=== PATIENT | male | born 1980 | race Caucasian/White ===

== ENCOUNTER 2022-10-30 20:39 | Emergency (ER) | payer SELFPAY ==
--- NOTE | ~2022-10-30 | CT_ITS ---
CT scan of the Neck Technique: 2.5 mm axial scans were obtained through the neck after intravenous administration of 75 c c Omnipaque 350. Coronal and sagittal reconstructions of the neck were obtained. Dose reduction techn ique was used on this scan by utilizing automated exposure control and iterative reconstruction techn ique. The dose-length product (DLP) was 748.32 mGy-cm. Clinical History: Left jaw swelling, abscess Findings: There is no evidence of any significant cervical lymphadenopathy. Several small, nonenlarged jugulo- digastric and posterior cervical lymph nodes are noted bilaterally. Parapharyngeal spaces appear norm al bilaterally. The parotid and submandibular glands appear normal. There is extensive subcutaneous soft tissue edema and swelling over the left mandibular region, somew hat extending into the submental region. No definite abscess identified. The pharyngeal mucosal spaces appear normal. No soft tissue masses are seen in the neck. Mild bilater al maxillary sinus disease present. Remaining paranasal sinuses and mastoid air cells are clear. The thyroid gland appears normal. Images of the lung apices reveal no abnormalities. Impression: Extensive subcutaneous soft tissue edema and swelling over the left mandibular region, suggestive of cellulitis. No abscess evident. Mild bilateral maxillary sinus disease. Reviewed, dictated and finalized at [facility]. Impression: Extensive subcutaneous soft tissue edema and swelling over the left mandibular region, suggestive of cellulitis. No abscess evident. Mild bilateral maxillary sinus disease.
[2022-10-30 20:47] VITALS: BP 168/91; PULSE 95; RESP 16; TEMP 36.9; O2SAT 100
--- NOTE | 2022-10-30 21:29 | ED.SKABFB ---
HPI - Skin/Abscess/Foreign Bdy General Chief complaint: Skin/Abscess/Foreign Body Stated complaint: L lower jaw swelling Time Seen by Provider: 10/30/22 21:11 Source: patient Mode of arrival: ambulatory Limitations: no limitations History of Present Illness HPI narrative: 42 year old male presents today with concerns to swelling of the left jaw that started today. States he has a hisory of mrsa. Noted a area to his left thigh that was red and painful yesterday but better today. left jaw started with swelling and redness today. Pain noted. Dental pain noted after swelling started. Patient did endorse cocaine usage, marijuana, but denies injecting recreational drugs. Denies fevers but states he hasn't felt well for a couple days but again did endorse large amount of cocaine usage this weekend. Onset (ago): hour(s) Related Data Allergies Allergy/AdvReac Type Severity Reaction Status Date / Time Sulfa (Sulfonamide Allergy Unknown Verified 10/30/22 20:50 Antibiotics) Review of Systems Review of Systems: All systems reviewed & are unremarkable except as noted in HPI and below ENT: Reports as per HPI Cardiovascular: Cardiovascular: Reports as per HPI Respiratory: Respiratory: Reports as per HPI Gastrointestinal: Gastrointestinal: Reports as per HPI Musculoskeletal: Musculoskeletal: Reports as per HPI Integumentary/Breasts: Skin/Breast: Reports as per HPI Neurologic: Reports as per HPI Psychiatric: Psychiatric: Reports as per HPI [facility] Past Medical History Medical History MRSA (methicillin resistant Staphylococcus aureus) Social History Social History (Updated 10/31/22 @ 01:46 by Cathy Wallace APRN) Smoking status: Current every day smoker Substance use: current Substance use type: marijuana and crack/cocaine Exam Const: General: cooperative, healthy appearing, comfortable, no acute distress and well developed Orientation/consciousness: patient oriented x3 HENMT: Mouth: Yes Normal oral and palatal mucosa present, No drooling, No muffled voice, No trismus and Yes other (dental decay noted, no abscess, no erythema) Other: swellinng to left jaw with some ertythema. difficult to fully evaluated due to johnston. Eyes: General: appearance normal, both eyes and all related structures Resp: Effort & Inspection: normal respiratory effort and able to speak in complete sentences Auscultation: clear to auscultation bilaterally Cardio: Rate: regular rate Rhythm: regular rhythm Heart sounds: S1 normal heart sound present and S2 normal heart sound present Skin: Other: as noted above and multiple scabs noted to multiple areas of the body. elke rash area noted to belt line to left abdomen. puritic per patient. Neuro: General: patient oriented x3 Course Course Emergency Course: patient with improvement in pain after Toradol. doing well. Discussed ct results. Plan discharge home on abx. return precautions reviewed. Patient in agreement with plan of care Vital Signs Vital signs: Vital Signs Temperature 98.5 F 10/30/22 20:47 Pulse Rate 95 10/30/22 20:47 Respiratory Rate 16 10/30/22 20:47 Blood Pressure 168/91 H 10/30/22 20:47 Pulse Oximetry 100 10/30/22 20:47 Oxygen Delivery Room Air 10/30/22 20:47 Temperature 98 F 10/31/22 00:53 Pulse Rate 88 10/31/22 00:53 Respiratory Rate 15 10/31/22 00:53 Blood Pressure 151/94 H 10/31/22 00:53 Pulse Oximetry 97 10/31/22 00:53 Oxygen Delivery Room Air 10/30/22 20:47 MDM - Skin/Abscess/Foreign Bdy MDM Narrative Medical decision making narrative: 42-year-old male HPI as noted. Differentials including abscess, dental abscess, cellulitis. No trismus or Ludewig's angina noted. No fever but slight tachycardia with a heart rate of 95 noted patient with history of MRSA. CBC shows elevated white count at 15.9 but no other concerning findings. C
[2022-10-30 21:59] LABS: Basophils Absolute Auto 0.1 K/mm3 (0.0-0.1); Basophils Percent Auto 0.4 % (0.2-1.2); Eosinophils Absolute Auto 0.3 K/mm3 (0-0.3); Eosinophils Percent Auto 1.7 % (0-4.4); Hematocrit 43.4 % (42.0-52.0); Hemoglobin 14.9 g/dL (14.0-18.0); Immature Granulocyte Absolute 0.05 K/mm3 (0.00-0.031); Immature Granulocyte Percent A 0.3 % (0-0.5); Lymphocytes Absolute Auto 2.13 K/mm3 (0.9-3.2); Lymphocytes Percent Auto 13.4 % (18.3-44.2); Mean Corpuscular HGB Conc 34.3 g/dl (32-36); Mean Corpuscular Hemoglobin 31.9 pg (26-34); Mean Corpuscular Volume 92.9 fl (80-100); Mean Platelet Volume 8.8 fl (7.4-10.4); Monocytes Absolute Auto 1.9 K/mm3 (0.1-0.6); Monocytes Percent Auto 11.7 % (2.6-8.5); Neutrophils Absolute Auto 11.5 K/mm3 (1.3-6.7); Neutrophils Percent Auto 72.5 % (45.5-73.1); Platelet Count Result 359 k/mm3 (150-375); Red Blood Count 4.67 M/mm3 (4.6-6.20); Red Cell Distribution Width 12.7 % (11.5-14.5); White Blood Count 15.9 K/mm3 (4.5-10.0)
[2022-10-30 22:09] LABS: Alanine Aminotransferase 23 U/L (6-50); Albumin Level 4.7 g/dL (3.5-5.1); Alkaline Phosphatase 75 U/L (38-126); Anion Gap 11 mmol/L (8-16); Aspartate Amino Transferase 30 U/L (17-59); Bilirubin,Total 0.6 mg/dL (0.2-1.3); Blood Urea Nitrogen 16 mg/dL (9-20); Calcium 9.5 mg/dL (8.4-10.2); Carbon Dioxide 29 mmol/L (22-30); Chloride 99 mmol/L (98-107); Estimated CRCL calculation 112 ml/min; Estimated Glomerular Filt Rate > 60; Glucose 113 mg/dL (65-110); Potassium 3.9 mmol/L (3.4-5.0); Sodium 139 mmol/L (137-145)
[2022-10-30 22:36] VITALS: BP 159/91; PULSE 77; RESP 15; O2SAT 100
[2022-10-30] MEDS: CLINDAMYCIN 900 MG/D5W 50 ML 900 MG/50 ML PIGGYBACK 50 MG IVPB (23:22)
[2022-10-30] MEDS: KETOROLAC 30 MG/ML VIAL (*BKC) IV PUSH (23:29)
[2022-10-31 00:53] VITALS: BP 151/94; PULSE 88; RESP 15; TEMP 36.6; O2SAT 97
== END 2022-10-31 00:54 | disposition home or self-care (01) ==
PROVIDERS: Emergency Provider Nurse Practitioner Family
DX: L03.211 Cellulitis of face (principal); F17.200 Nicotine dependence, unspecified, uncomplicated
CPT/HCPCS: 36415; 70491; 80053; 85025; 87040; 96365; 96375; 99284; J1885; Q9967

== ENCOUNTER 2023-02-03 14:56 | Emergency (ER) | payer SELFPAY ==
--- NOTE | 2023-02-03 14:59 | ED.SKABFB ---
HPI - Skin/Abscess/Foreign Bdy General Chief complaint: Skin/Abscess/Foreign Body Stated complaint: Staff Infection Source: patient and RN notes reviewed Mode of arrival: ambulatory Limitations: no limitations History of Present Illness HPI narrative: Patient is a 42-year-old male who presents to the [facility] with complaints wound to his right cheek and left forearm. Patient states that he scraped his right cheek and left forearm approximately 2 days ago. Patient states that he noted some swelling and redness to the areas. He reports a mild burning to both his right cheek and left forearm. He presents with notable abscesses to each area. There was a centered scab with surrounding erythema and induration. He denies recent fevers. Patient reports history of MRSA. Related Data Allergies Allergy/AdvReac Type Severity Reaction Status Date / Time Sulfa (Sulfonamide Allergy Unknown Verified 02/03/23 15:01 Antibiotics) Review of Systems Review of Systems: CONSTITUTIONAL: Denies fever, chills, or sweats. EYES: Denies visual changes, redness, or discharge. ENT: Denies otalgia and sore throat CARDIOVASCULAR: Denies chest pain, palpitations, or edema. RESPIRATORY: Denies cough or dyspnea. GASTROINTESTINAL: Denies abdominal pain, nausea, vomiting, or diarrhea. GENITOURINARY: Denies dysuria or hematuria. SKIN: Denies rash or itching. Reports wound to right cheek and left forearm with swelling and redness. MUSCULOSKELETAL: Denies back pain, joint pain, or myalgia. NEUROLOGIC: Denies headache, numbness, or weakness. Pertinent positives per HPI. [facility] Past Medical History Medical History MRSA (methicillin resistant Staphylococcus aureus) Social History Social History Smoking status: Current every day smoker Substance use: current Substance use type: marijuana and crack/cocaine Comments At the time of my signature, I reviewed and agree with the nursing past medical, surgical, social, and family history. There is no relevant family history pertinent to the patient complaint. Exam Narrative: GENERAL: This is a well-nourished, well-developed patient, in no apparent distress. HEAD: normocephalic, atraumatic. EYES: PERRL. Sclera clear/white. Vision is grossly intact. EARS: External ears normal, auditory canals clear and without drainage, TMs normal without perforation. Hearing grossly intact. NOSE: External nose normal with no obvious nasal discharge, nares without redness, no rhinorrhea. THROAT: Mucous membranes moist, posterior pharynx clear. NECK: Neck supple, non-tender without lymphadenopathy, masses or thyromegaly. CARDIOVASCULAR: Regular rate and rhythm without murmurs, gallops, or rubs. RESPIRATORY: Clear to auscultation. Breath sounds equal bilaterally. No wheezes, rales, or rhonchi. GASTROINTESTINAL: Abdomen soft, non-tender, nondistended. Bowel sounds are active. No hepato-splenomegaly, or palpable masses. No guarding. SKIN: warm, intact with no suspicious rash, good texture and turgor. Right cheek abscess with centered scab with surrounding induration and erythema. No active drainage. Left forearm abscess with centered scab with surrounding induration and erythema. NEURO: awake, alert, and oriented to person, place and time. There were no obvious focal neurologic abnormalities. Course Course Level of Care: Express Care Visit Vital Signs Vital signs: Vital Signs Temperature 97.8 F 02/03/23 15:03 Pulse Rate 73 02/03/23 15:03 Respiratory Rate 16 02/03/23 15:03 Blood Pressure 117/73 02/03/23 15:03 Pulse Oximetry 100 02/03/23 15:03 Temperature 97.8 F 02/03/23 15:03 Pulse Rate 73 02/03/23 15:03 Respiratory Rate 16 02/03/23 15:03 Blood Pressure 117/73 02/03/23 15:03 Pulse Oximetry 100 02/03/23 15:03 Reviewed MDM - Skin/Abscess/Foreign Bdy MDM N
[2023-02-03 15:03] VITALS: BP 117/73; PULSE 73; RESP 16; TEMP 36.6; O2SAT 100
== END 2023-02-03 15:16 | disposition home or self-care (01) ==
LOC: EXPGOSH 14:58
PROVIDERS: Emergency Provider Nurse Practitioner
DX: L02.01 Cutaneous abscess of face (principal); L02.414 Cutaneous abscess of left upper limb; Z86.14 Personal history of Methicillin resistant Staphylococcus aureus infection; F17.200 Nicotine dependence, unspecified, uncomplicated; F12.90 Cannabis use, unspecified, uncomplicated; F14.90 Cocaine use, unspecified, uncomplicated
CPT/HCPCS: 99213; G0463

== ENCOUNTER 2023-04-13 14:42 | Emergency (ER) | payer SELFPAY ==
[2023-04-13 14:52] VITALS: BP 121/82; PULSE 86; RESP 16; TEMP 36.3; O2SAT 98
--- NOTE | 2023-04-13 15:02 | ED.SKABFB ---
HPI - Skin/Abscess/Foreign Bdy General Chief complaint: Skin/Abscess/Foreign Body Stated complaint: Staph Infection Time Seen by Provider: 04/13/23 15:02 Source: patient, RN notes reviewed and old records reviewed Mode of arrival: ambulatory Limitations: no limitations History of Present Illness HPI narrative: 42 year old male presents to express care with complaints of cellulitis and abscess to the right side of neck with some red tissue noted with some pustules with no active drainage, states was seen in January but never cleared all the way. Patient also has area to his right forearm that appears to be an abrasion with scabbing and a small pustular lesion noted laterally with no drainage noted. Patient denies any fevers chills or sweats. Patient reports that he was treated previously for abscess in January for which he took 5 days of the prescription then he lost the rest.. Patient reports that he has a lot of generalized musculoskeletal pain to his arms and to right clavicle from previous injuries and is requesting narcotic pain medication. Patient instructed to take Tylenol, Ibuprofen,or Aleve for pain, Gabapentin for neuropathic discomfort ordered. Patient admits to Marijuana use states has cut back on cocaine use ,denies injecting drug, and smokes tobacco daily reports no alcohol use.Patient reports history of staph infection. MD complaint: other (cellulitis with abscess) Onset (ago): day(s) (2) Location: neck (right) and RUE Severity scale (1-10): 7 Quality: aching Treatments prior to arrival: NSAID Related Data Allergies Allergy/AdvReac Type Severity Reaction Status Date / Time Sulfa (Sulfonamide Allergy Unknown Verified 04/13/23 14:50 Antibiotics) Review of Systems Review of Systems: CONSTITUTIONAL: Denies fever, chills, or sweats. CARDIOVASCULAR: Denies chest pain, palpitations, or edema. RESPIRATORY: Denies cough or dyspnea. SKIN: Reports red irritated tissue to right side of neck with some pustule formation and to right inner forearm which looks like scabbed abrasion with small abscess laterally to scab without drainage. MUSCULOSKELETAL: Reports generalized joint pain or myalgia. NEUROLOGIC: Denies headache, numbness, or weakness. All systems reviewed & are unremarkable except as noted in HPI and below PMFSH Past Medical History Medical History (Updated 04/13/23 @ 15:52 by Tania Prince NP) Fracture of left forearm reports surgical intervention Fracture of right forearm reports surgical intervention MRSA (methicillin resistant Staphylococcus aureus) Social History Social History Smoking status: Current every day smoker Substance use: current Substance use type: marijuana and crack/cocaine Comments At time of signature, agree with nursing past medical, surgical, social and family history. There is no relevant family history pertinent to the presenting complaint Exam Narrative: GENERAL: Well-appearing, well-nourished, and in no acute distress. HEAD: Normocephalic, atraumatic. EYES: PERRLA, conjunctivae clear, and EOMI. ENT: Mucous membranes moist. Oropharynx without edema, erythema or lesions. NECK: Supple. No lymphadenopathy CHEST: Clear to auscultation. No respiratory distress. SAO2 98% on room air HEART: Regular rate and rhythm. SKIN: Warm, dry.? Patches of erythema with small pustules on right side of neck with abrasion type of wound right forearm with small pustule lateral of abrasion,pulses palpable to right arm.Patient reports previous infection in January of his skin took 5 days of antibiotic but lost the rest. Patient reports that past 2 days abscess on forearm appeared. States history of staph infection. NEURO:? Alert and oriented x3. PSYCH: Normal mood and affect Course Course Emergency Course: Patient is aware of diagnosis, understands and agrees to treatment plan.? Anticipatory guidance given.?
== END 2023-04-13 15:24 | disposition home or self-care (01) ==
PROVIDERS: Emergency Provider Registered Nurse
DX: L02.11 Cutaneous abscess of neck (principal); L02.413 Cutaneous abscess of right upper limb; F17.210 Nicotine dependence, cigarettes, uncomplicated
CPT/HCPCS: 99213; G0463